=== PATIENT | female | born 1985 | race Caucasian/White ===

== ENCOUNTER 2016-11-22 05:48 | Inpatient (IN) | payer OTHER ==
[~2016-11-22] VITALS: Ht 160 cm; Wt 90.0 kg
[~2016-11-22 05:48] MED LIST: ALBU90AE INH
[2016-11-22] MEDS: D5%-LACTATED RINGERS 1,000 ML IV SCH ×3 (06:15→22:15)
[2016-11-22] MEDS ORDERED: OXYTOCIN 30U/ 0.9% NaCL 500ML 500 ML IV PRN (06:15)
[2016-11-22] MEDS ORDERED: OXYTOCIN 30U/ 0.9% NaCL 500ML 500 ML IV ONE (06:15)
[2016-11-22] MEDS ORDERED: ONDANSETRON 2MG/ML, 2ML IVPush PRN (06:30)
[2016-11-22] MEDS ORDERED: FENTANYL PF 100 MCG/2ML IV PRN (06:30)
[2016-11-22] MEDS ORDERED: FENTANYL PF 100 MCG/2ML IVPush PRN (06:30)
[2016-11-22] MEDS ORDERED: CALCIUM CARBONATE 500 MG TAB.CHEW PO PRN (06:30)
[2016-11-22] MEDS ORDERED: NEWBORN KIT ONE (06:49)
[2016-11-22 06:52] VITALS: BP 131/92
[2016-11-22 07:38] VITALS: BP 125/79
[2016-11-22] MEDS ORDERED: OXYTOCIN 30U/ 0.9% NaCL 500ML 500 ML ONE (08:40)
[2016-11-22] MEDS: LACTATED RINGERS 1,000 ML IV SCH ×4 (11:36→20:56)
[2016-11-22] MEDS ORDERED: FENTANYL/BUPIV./NS/PF 250 ML EPIDCONT ONE (12:07)
[2016-11-22] MEDS ORDERED: LIDOCAINE/PF 1.5%-EPI 1:200K, 30ML ONE (12:08)
[2016-11-22] MEDS ORDERED: CEFAZOLIN 1,000 MG IVPB SCH (16:00)
[2016-11-22] MEDS ORDERED: CEFAZOLIN 1,000 MG IM SCH (16:00)
[2016-11-22] MEDS: CEFAZOLIN 2,000 MG in SODIUM CHLORIDE 0.9% 50 ML IV SCH ×2 (16:19→22:36)
[2016-11-22] MEDS ORDERED: FENTANYL/BUPIV./NS/PF 250 ML EPIDCONT SCH (20:56)
[2016-11-22] MEDS ORDERED: EPHEDRINE 50 MG/ML, 1ML IVPush PRN (21:00)
[2016-11-22] MEDS ORDERED: NALOXONE 0.4 MG/ML, 1ML IVPush PRN (21:00)
[2016-11-22] MEDS ORDERED: LACTATED RINGERS 1,000 ML IVBOLUS PRN (21:00)
[2016-11-23] MEDS ORDERED: ACETAMINOPHEN 325 MG TABLET ONE (00:21)
[2016-11-23] MEDS: ACETAMINOPHEN 325 MG TABLET PO PRN ×2 (00:24→20:08)
[2016-11-23] MEDS: CEFAZOLIN 2,000 MG in SODIUM CHLORIDE 0.9% 50 ML IV SCH ×3 (04:31→16:00)
[2016-11-23] MEDS: LACTATED RINGERS 1,000 ML IV SCH ×8 (04:56→19:18)
[2016-11-23] MEDS: D5%-LACTATED RINGERS 1,000 ML IV SCH ×2 (06:15→14:15)
[2016-11-23] MEDS ORDERED: LIDOCAINE/MPF 2%-EPI 1:200K, 20 ML ONE ×2 (07:43→07:59)
[2016-11-23] MEDS ORDERED: AZITHROMYCIN 1,000 MG in SODIUM CHLORIDE 0.9% 250 ML IV STA (07:54)
[2016-11-23] MEDS ORDERED: CEFAZOLIN 1,000 MG ONE (07:59)
[2016-11-23] MEDS ORDERED: AZITHROMYCIN 1,000 MG in SODIUM CHLORIDE 0.9% 500 ML IV STA ×2 (08:14→08:18)
[2016-11-23] MEDS ORDERED: HYDROmorphone 2 MG/ML, 1ML ONE (08:27)
[2016-11-23] MEDS: OXYTOCIN 30U/ 0.9% NaCL 500ML 500 ML IV SCH ×2 (09:18→19:18)
[2016-11-23] MEDS: PRENATAL VIT/IRON/FA 1 EACH TABLET PO SCH (09:30)
[2016-11-23] MEDS ORDERED: SIMETHICONE 80 MG CHEW TAB PO PRN (09:30)
[2016-11-23] MEDS ORDERED: ONDANSETRON 2MG/ML, 2ML IV PRN (09:30)
[2016-11-23] MEDS ORDERED: OXYcodone/APAP 5/325MG TABLET PO PRN (09:30)
[2016-11-23] MEDS ORDERED: MEPERIDINE/PF 50 MG/ML IVPush PRN (09:30)
[2016-11-23] MEDS ORDERED: MISOPROSTOL 200 MCG TABLET PR PRN (09:30)
[2016-11-23] MEDS ORDERED: morphine SULFATE 10 MG/ML, 1ML IVPush PRN ×2 (09:30)
[2016-11-23] MEDS: KETOROLAC 30 MG/1 ML IV SCH ×3 (09:54→22:27)
[2016-11-23] MEDS ORDERED: OXYcodone 5 MG/5 ML ORAL.SOL UDC ONE (10:38)
[2016-11-23] MEDS ORDERED: OXYcodone 5 MG/5 ML ORAL.SOL UDC PO PRN (11:00)
[2016-11-23 11:30] VITALS: BP 129/75
[2016-11-23 12:30] VITALS: BP 131/75
[2016-11-23] MEDS ORDERED: morphine SULFATE 10 MG/ML, 1ML ONE (12:46)
[2016-11-23] MEDS ORDERED: OXYcodone/APAP 5/325MG TABLET ONE (16:06)
[2016-11-23] MEDS: OXYcodone IR 5MG TABLET PO PRN ×2 (16:24→20:08)
[2016-11-23 18:55] VITALS: BP 117/79
[2016-11-23 21:45] VITALS: BP 121/81
[2016-11-23] MEDS ORDERED: CEFTRIAXONE PMX 1GM/50ML 50 ML IV SCH (22:30)
[2016-11-23] MEDS ORDERED: CEFTRIAXONE 1,000 MG IV SCH (22:30)
[2016-11-24 00:50] VITALS: BP 116/74
[2016-11-24] MEDS: LACTATED RINGERS 1,000 ML IV SCH ×5 (01:18→17:18)
[2016-11-24] MEDS: OXYcodone IR 5MG TABLET PO PRN ×3 (02:14→18:38)
[2016-11-24 04:25] VITALS: BP 113/77
[2016-11-24] MEDS: KETOROLAC 30 MG/1 ML IV SCH ×3 (04:29→17:30)
[2016-11-24] MEDS: OXYTOCIN 30U/ 0.9% NaCL 500ML 500 ML IV SCH ×2 (05:18→15:18)
[2016-11-24] MEDS: PRENATAL VIT/IRON/FA 1 EACH TABLET PO SCH (08:36)
[2016-11-24] MEDS: DOCUSATE 100 MG CAPSULE PO PRN ×2 (08:36→21:05)
[2016-11-24 08:40] VITALS: BP 116/74
[2016-11-24 19:50] VITALS: BP 133/77
[2016-11-24] MEDS: AMOXICILLIN/CLAV 875-125MG TABLET PO SCH (21:05)
[2016-11-24] MEDS: IBUPROFEN 600 MG TABLET PO PRN (21:05)
[2016-11-25 00:30] VITALS: BP 136/81
[2016-11-25] MEDS: OXYTOCIN 30U/ 0.9% NaCL 500ML 500 ML IV SCH (01:18)
[2016-11-25] MEDS: LACTATED RINGERS 1,000 ML IV SCH ×3 (01:18→09:18)
[2016-11-25 04:40] VITALS: BP 137/82
[2016-11-25] MEDS: IBUPROFEN 600 MG TABLET PO PRN ×2 (05:26→12:44)
[2016-11-25 08:15] VITALS: BP 129/79
[2016-11-25] MEDS: DOCUSATE 100 MG CAPSULE PO PRN ×2 (08:50→22:21)
[2016-11-25] MEDS: PRENATAL VIT/IRON/FA 1 EACH TABLET PO SCH (08:50)
[2016-11-25] MEDS: AMOXICILLIN/CLAV 875-125MG TABLET PO SCH ×2 (08:51→22:21)
[2016-11-25] MEDS ORDERED: IBUPROFEN 600 MG TABLET PO PRN (10:00)
[2016-11-25 12:10] VITALS: BP 124/78
[2016-11-25 21:00] VITALS: BP 125/78
[2016-11-26] MEDS: IBUPROFEN 600 MG TABLET PO PRN ×2 (07:25→13:21)
[2016-11-26] MEDS: PRENATAL VIT/IRON/FA 1 EACH TABLET PO SCH (07:25)
[2016-11-26] MEDS: DOCUSATE 100 MG CAPSULE PO PRN (07:25)
[2016-11-26 07:30] VITALS: BP 126/84
[2016-11-26] MEDS ORDERED: IBUP-1222 PO (09:32)
[2016-11-26] MEDS ORDERED: OXYC-302 PO (09:34)
[2016-11-26] MEDS: AMOXICILLIN/CLAV 875-125MG TABLET PO SCH (13:00)
== END 2016-11-26 15:10 | disposition home or self-care (01) | DRG 766 ==
LOC: LDOP 05:48 → LDIP 06:13 → 2NW 11-23 11:56 → 2NE 11-23 12:08 → 2NW 11-23 18:07
PROVIDERS: ADMIT Obstetrics & Gynecology Gynecology; ATTEND Obstetrics & Gynecology Gynecology
PROC: 10D00Z1 Extraction of Products of Conception, Low, Open Approach (ICD-10-PCS; principal; 2016-11-23)
DX: O62.0 Primary inadequate contractions (principal); O42.92 Full-term premature rupture of membranes, unspecified as to length of time between rupture and onset of labor; Z37.0 Single live birth; O77.0 Labor and delivery complicated by meconium in amniotic fluid; O76 Abnormality in fetal heart rate and rhythm complicating labor and delivery; Z3A.40 40 weeks gestation of pregnancy
CPT/HCPCS: 36415; 82803; 85025; 86850; 86900; J0456; J0690; J0696; J1170; J1885; J3490; J2270; J2590; J3010; J7040; J7120

== ENCOUNTER 2019-07-20 17:32 | Outpatient (CLI) | payer OTHER ==
[~2019-07-20] VITALS: Ht 160 cm; Wt 83.6 kg
[~2019-07-20 17:32] MED LIST changes: +IBUP-1222 PO; +OXYC-302 PO
[2019-07-20 18:19] LABS: BASOPHILS # (AUTO) 0.01 x10^3/uL (0-0.1); BASOPHILS % (AUTO) 0 % (0-1); EOSINOPHILS # (AUTO) 0.06 x10^3/uL (0-0.4); EOSINOPHILS % (AUTO) 1 % (1-7); LYMPHOCYTES # (AUTO) 2.08 x10^3/uL (1-3.4); LYMPHOCYTES % (AUTO) 21 % (22-44); MD NO; MEAN CORPUSCULAR HEMOGLOBIN 31.9 pg (27.0-34.8); MEAN CORPUSCULAR HGB CONC 33.6 g/dL (32.4-35.8); MEAN CORPUSCULAR VOLUME 94.8 fL (80-100); MEAN PLATELET VOLUME 8.4 fL (7.4-10.4); MONOCYTES # (AUTO) 0.72 x10^3/uL (0.2-0.8); MONOCYTES % (AUTO) 7 % (2-9); NEUTROPHILS # (AUTO) 7.26 x10^3/uL (1.8-6.8); NEUTROPHILS % (AUTO) 72 % (42-75); PLATELET COUNT 217 x10^3/uL (130-400); RED BLOOD COUNT 3.96 x10^6/uL (3.82-5.3); RED CELL DISTRIBUTION WIDTH 13.7 % (9.6-15.2)
[2019-07-20 18:32] LABS: ALANINE AMINOTRANSFERASE 16 U/L (12-78); ALBUMIN 2.6 g/dL (3.4-5.0); ANION GAP 7 mmol/L (5-15); CALCIUM 9.2 mg/dL (8.5-10.1); CHLORIDE 107 mmol/L (98-107); CREATININE 0.62 mg/dL (0.55-1.02)
[2019-07-20 18:34] LABS: CREATININE,URINE RANDOM 27.5 mg/dL
[2019-07-20 18:34] LABS: ALKALINE PHOSPHATASE 86 U/L (45-117); BILIRUBIN,TOTAL 0.2 mg/dL (0.2-1.0); TOTAL PROTEIN 6.8 g/dL (6.4-8.2)
[2019-07-20 19:15] LABS: MICROSCOPIC INDICATED
== END 2019-07-20 20:25 | disposition home or self-care (01) ==
LOC: LDOP 17:32
PROVIDERS: ATTEND Obstetrics & Gynecology
DX: O13.3 Gestational [pregnancy-induced] hypertension without significant proteinuria, third trimester (principal); Z3A.35 35 weeks gestation of pregnancy
CPT/HCPCS: 36415; 59025; 80053; 81001; 82570; 84156; 84550; 85025; 87081; 99211; G0463

== ENCOUNTER 2019-07-25 08:34 | Outpatient (CLI) | payer OTHER ==
[2019-07-25 08:57] VITALS: BP 128/81
== END 2019-07-25 10:57 | disposition home or self-care (01) ==
LOC: LDOP 08:34
PROVIDERS: ATTEND Obstetrics & Gynecology
DX: O32.1XX0 Maternal care for breech presentation, not applicable or unspecified (principal); O36.8130 Decreased fetal movements, third trimester, not applicable or unspecified; Z3A.33 33 weeks gestation of pregnancy
CPT/HCPCS: 59025; 76819; 99211; G0463

== ENCOUNTER 2019-08-09 16:57 | Outpatient (CLI) | payer OTHER ==
[~2019-08-09] VITALS: Ht 160 cm; Wt 86.8 kg
[2019-08-09 17:23] VITALS: BP 122/66
[2019-08-09 17:47] LABS: MICROSCOPIC AUTO
[2019-08-09 17:54] LABS: CREATININE,URINE RANDOM 27.7 mg/dL
[2019-08-09 18:27] LABS: ALANINE AMINOTRANSFERASE 18 U/L (12-78); ALBUMIN 2.6 g/dL (3.4-5.0); ANION GAP 8 mmol/L (5-15); CALCIUM 8.9 mg/dL (8.5-10.1); CHLORIDE 109 mmol/L (98-107); CREATININE 0.73 mg/dL (0.55-1.02)
[2019-08-09 18:29] LABS: ALKALINE PHOSPHATASE 112 U/L (45-117); BASOPHILS # (AUTO) 0.02 x10^3/uL (0-0.1); BASOPHILS % (AUTO) 0 % (0-1); BILIRUBIN,TOTAL 0.2 mg/dL (0.2-1.0); EOSINOPHILS # (AUTO) 0.11 x10^3/uL (0-0.4); EOSINOPHILS % (AUTO) 1 % (1-7); LYMPHOCYTES % (AUTO) 20 % (22-44); MD NO; MEAN CORPUSCULAR HGB CONC 33.9 g/dL (32.4-35.8); MEAN CORPUSCULAR VOLUME 94.3 fL (80-100); MEAN PLATELET VOLUME 9.3 fL (7.4-10.4); MONOCYTES # (AUTO) 0.67 x10^3/uL (0.2-0.8); MONOCYTES % (AUTO) 8 % (2-9); NEUTROPHILS # (AUTO) 5.84 x10^3/uL (1.8-6.8); NEUTROPHILS % (AUTO) 70 % (42-75); PLATELET COUNT 201 x10^3/uL (130-400); RED BLOOD COUNT 3.92 x10^6/uL (3.82-5.3); RED CELL DISTRIBUTION WIDTH 14.3 % (9.6-15.2); TOTAL PROTEIN 6.8 g/dL (6.4-8.2)
[2019-08-09 18:30] LABS: BILIRUBIN, DIRECT < 0.1 mg/dL (0.1-0.2)
== END 2019-08-09 19:12 | disposition home or self-care (01) ==
LOC: LDOP 16:57
PROVIDERS: ATTEND Obstetrics & Gynecology
DX: O13.3 Gestational [pregnancy-induced] hypertension without significant proteinuria, third trimester (principal); Z3A.38 38 weeks gestation of pregnancy; Z91.010 Allergy to peanuts
CPT/HCPCS: 36415; 59025; 80053; 81001; 82248; 82570; 84156; 84550; 85025; 99211; G0463

== ENCOUNTER 2019-08-11 05:35 | Inpatient (IN) | payer OTHER ==
[~2019-08-11] VITALS: Ht 160 cm; Wt 86.3 kg
[2019-08-11] MEDS ORDERED: LACTATED RINGERS 1,000 ML IV SCH (05:38)
[2019-08-11 05:49] VITALS: BP 119/78
[2019-08-11] MEDS ORDERED: PREN-3 PO (05:55)
[2019-08-11] MEDS ORDERED: ALBU0.63 NEB (05:57)
[2019-08-11] MEDS ORDERED: METOCLOPRAMIDE 5 MG/ML, 2ML IV ONE (06:00)
[2019-08-11] MEDS ORDERED: LACTATED RINGERS 1,000 ML IVBOLUS ONE (06:00)
[2019-08-11] MEDS ORDERED: SODIUM CITRATE/CITRIC ACID 30 ML UDC PO ONE (06:00)
[2019-08-11] MEDS ORDERED: SODIUM CITRATE/CITRIC ACID 30 ML UDC ONE (06:18)
[2019-08-11] MEDS ORDERED: NEWBORN KIT ONE (06:18)
[2019-08-11] MEDS ORDERED: OXYTOCIN 30U/ 0.9% NaCL 500ML 500 ML ONE (06:18)
[2019-08-11] MEDS ORDERED: METOCLOPRAMIDE 5 MG/ML, 2ML ONE (06:18)
[2019-08-11 06:48] LABS: BASOPHILS # (AUTO) 0.02 x10^3/uL (0-0.1); BASOPHILS % (AUTO) 0 % (0-1); EOSINOPHILS # (AUTO) 0.07 x10^3/uL (0-0.4); EOSINOPHILS % (AUTO) 1 % (1-7); LYMPHOCYTES # (AUTO) 1.55 x10^3/uL (1-3.4); LYMPHOCYTES % (AUTO) 20 % (22-44); MD NO; MEAN CORPUSCULAR HEMOGLOBIN 32.1 pg (27.0-34.8); MEAN CORPUSCULAR HGB CONC 33.5 g/dL (32.4-35.8); MEAN CORPUSCULAR VOLUME 95.8 fL (80-100); MEAN PLATELET VOLUME 9.2 fL (7.4-10.4); MONOCYTES # (AUTO) 0.59 x10^3/uL (0.2-0.8); MONOCYTES % (AUTO) 8 % (2-9); NEUTROPHILS # (AUTO) 5.37 x10^3/uL (1.8-6.8); NEUTROPHILS % (AUTO) 71 % (42-75); PLATELET COUNT 188 x10^3/uL (130-400); RED BLOOD COUNT 3.85 x10^6/uL (3.82-5.3); RED CELL DISTRIBUTION WIDTH 14.3 % (9.6-15.2)
[2019-08-11] MEDS ORDERED: FENTANYL PF 100 MCG/2ML ONE (07:16)
[2019-08-11] MEDS ORDERED: OXYTOCIN 10 UNITS/ML, 1ML ONE (07:23)
[2019-08-11] MEDS ORDERED: CEFAZOLIN 1,000 MG ONE (07:23)
[2019-08-11] MEDS ORDERED: KETOROLAC 30 MG/1 ML ONE (07:23)
[2019-08-11 08:33] LABS: CREATININE,URINE RANDOM 52.3 mg/dL
[2019-08-11] MEDS: KETOROLAC 30 MG/1 ML IV SCH ×3 (09:00→21:56)
[2019-08-11] MEDS ORDERED: ONDANSETRON 2MG/ML, 2ML ONE (09:04)
[2019-08-11] MEDS: LACTATED RINGERS 1,000 ML IV SCH ×4 (09:06→19:06)
[2019-08-11] MEDS: OXYTOCIN 30U/ 0.9% NaCL 500ML 500 ML IV SCH ×2 (09:16→19:06)
[2019-08-11] MEDS ORDERED: MORPHINE SULFATE 4 MG/ML, 1ML IVPush PRN (09:30)
[2019-08-11] MEDS ORDERED: morphine SULFATE 10 MG/ML, 1ML IVPush PRN ×2 (09:30)
[2019-08-11] MEDS ORDERED: ONDANSETRON 2MG/ML, 2ML IVPush PRN (09:30)
[2019-08-11] MEDS ORDERED: EPHEDRINE 50 MG/ML, 1ML IVPush PRN (09:30)
[2019-08-11] MEDS ORDERED: PROMETHAZINE 25 MG/ML, 1ML IV PRN (09:30)
[2019-08-11] MEDS ORDERED: ALBUTEROL/IPRATROPIUM 2.5MG/0.5MG, 3 ML NPPB PRN (09:30)
[2019-08-11] MEDS ORDERED: GLYCERIN ADULT SUPP PR PRN (09:30)
[2019-08-11] MEDS ORDERED: ONDANSETRON 2MG/ML, 2ML IV PRN ×2 (09:30)
[2019-08-11] MEDS ORDERED: FENTANYL PF 100 MCG/2ML IV PRN (09:30)
[2019-08-11] MEDS ORDERED: SIMETHICONE 80 MG CHEW TAB PO PRN (09:30)
[2019-08-11] MEDS ORDERED: DIPHENHYDRAMINE 50 MG/ML, 1ML IVPush PRN (09:30)
[2019-08-11] MEDS ORDERED: OXYcodone 5 MG/5 ML ORAL.SOL UDC PO PRN (09:30)
[2019-08-11] MEDS ORDERED: MISOPROSTOL 200 MCG TABLET PR PRN (09:30)
[2019-08-11] MEDS ORDERED: LABETALOL 5MG/ML, 20ML IV PRN (09:30)
[2019-08-11] MEDS ORDERED: DEXAMETHASONE 4 MG/ML, 1ML IV PRN (09:30)
[2019-08-11] MEDS ORDERED: OXYcodone IR 5MG TABLET PO PRN (09:30)
[2019-08-11] MEDS ORDERED: MEPERIDINE/PF 25MG/ML,1ML IVPush PRN (09:30)
[2019-08-11 11:10] VITALS: BP 117/58
[2019-08-11] MEDS: OXYcodone/APAP 5/325MG TABLET PO PRN ×3 (13:01→21:57)
[2019-08-11 16:00] VITALS: BP 130/85
[2019-08-11 16:32] LABS: BASOPHILS # (AUTO) 0.05 x10^3/uL (0-0.1); BASOPHILS % (AUTO) 0 % (0-1); EOSINOPHILS # (AUTO) 0.04 x10^3/uL (0-0.4); EOSINOPHILS % (AUTO) 0 % (1-7); LYMPHOCYTES # (AUTO) 1.62 x10^3/uL (1-3.4); LYMPHOCYTES % (AUTO) 15 % (22-44); MD NO; MEAN CORPUSCULAR HEMOGLOBIN 32.3 pg (27.0-34.8); MEAN CORPUSCULAR HGB CONC 33.8 g/dL (32.4-35.8); MEAN CORPUSCULAR VOLUME 95.5 fL (80-100); MEAN PLATELET VOLUME 8.3 fL (7.4-10.4); MONOCYTES # (AUTO) 0.66 x10^3/uL (0.2-0.8); MONOCYTES % (AUTO) 6 % (2-9); NEUTROPHILS % (AUTO) 79 % (42-75); PLATELET COUNT 165 x10^3/uL (130-400); RED BLOOD COUNT 3.38 x10^6/uL (3.82-5.3); RED CELL DISTRIBUTION WIDTH 14.3 % (9.6-15.2)
[2019-08-11 19:23] VITALS: BP 117/79
[2019-08-11] MEDS ORDERED: MEASLES,MUMPS&RUBELLA VACC/PF 0.5 ML SQ-VACC ONE ×2 (20:03→20:30)
[2019-08-11] MEDS: DOCUSATE 100 MG CAPSULE PO PRN (21:57)
[2019-08-12] MEDS: LACTATED RINGERS 1,000 ML IV SCH ×2 (01:06→05:06)
[2019-08-12 01:25] VITALS: BP 132/89
[2019-08-12 04:15] VITALS: BP 116/72
[2019-08-12] MEDS: KETOROLAC 30 MG/1 ML IV SCH (04:18)
[2019-08-12] MEDS: OXYTOCIN 30U/ 0.9% NaCL 500ML 500 ML IV SCH (05:06)
[2019-08-12 08:15] VITALS: BP 124/79
[2019-08-12] MEDS: DOCUSATE 100 MG CAPSULE PO PRN (08:25)
[2019-08-12] MEDS: OXYcodone/APAP 5/325MG TABLET PO PRN ×3 (08:26→17:54)
[2019-08-12] MEDS: PRENATAL VIT/IRON/FA 1 EACH TABLET PO SCH (09:00)
[2019-08-12] MEDS: IBUPROFEN 600 MG TABLET PO PRN ×2 (11:25→17:54)
[2019-08-12 19:00] VITALS: BP 122/76
[2019-08-13] MEDS: IBUPROFEN 600 MG TABLET PO PRN ×2 (00:07→06:49)
[2019-08-13] MEDS: OXYcodone/APAP 5/325MG TABLET PO PRN ×2 (00:07→10:17)
[2019-08-13 07:10] VITALS: BP 126/86
[2019-08-13 07:13] LABS: BASOPHILS # (AUTO) 0.03 x10^3/uL (0-0.1); BASOPHILS % (AUTO) 0 % (0-1); EOSINOPHILS % (AUTO) 1 % (1-7); LYMPHOCYTES # (AUTO) 1.55 x10^3/uL (1-3.4); LYMPHOCYTES % (AUTO) 19 % (22-44); MD NO; MEAN CORPUSCULAR HEMOGLOBIN 31.7 pg (27.0-34.8); MEAN CORPUSCULAR HGB CONC 32.8 g/dL (32.4-35.8); MEAN CORPUSCULAR VOLUME 96.8 fL (80-100); MEAN PLATELET VOLUME 7.3 fL (7.4-10.4); MONOCYTES # (AUTO) 0.53 x10^3/uL (0.2-0.8); MONOCYTES % (AUTO) 6 % (2-9); NEUTROPHILS # (AUTO) 6.05 x10^3/uL (1.8-6.8); NEUTROPHILS % (AUTO) 73 % (42-75); PLATELET COUNT 189 x10^3/uL (130-400); RED BLOOD COUNT 3.45 x10^6/uL (3.82-5.3); RED CELL DISTRIBUTION WIDTH 14.6 % (9.6-15.2)
[2019-08-13 07:24] LABS: ALANINE AMINOTRANSFERASE 13 U/L (12-78); ALBUMIN 2.1 g/dL (3.4-5.0); ANION GAP 6 mmol/L (5-15); CALCIUM 8.4 mg/dL (8.5-10.1); CHLORIDE 107 mmol/L (98-107)
[2019-08-13 07:27] LABS: ALKALINE PHOSPHATASE 88 U/L (45-117); BILIRUBIN,TOTAL 0.2 mg/dL (0.2-1.0); CREATININE 0.72 mg/dL (0.55-1.02); TOTAL PROTEIN 6.2 g/dL (6.4-8.2)
[2019-08-13] MEDS: PRENATAL VIT/IRON/FA 1 EACH TABLET PO SCH (07:50)
[2019-08-13] MEDS: DOCUSATE 100 MG CAPSULE PO PRN (07:50)
[2019-08-13] MEDS ORDERED: DOCU-131 PO (10:06)
[2019-08-13] MEDS ORDERED: OXYC-302 PO (10:06)
[2019-08-13] MEDS ORDERED: IBUP-1222 PO (10:06)
== END 2019-08-13 10:30 | disposition home or self-care (01) | DRG 788 ==
LOC: LDIP 05:35 → 2NW 11:00
PROVIDERS: ADMIT Obstetrics & Gynecology; ATTEND Obstetrics & Gynecology
PROC: 10D00Z1 Extraction of Products of Conception, Low, Open Approach (ICD-10-PCS; principal; 2019-08-11)
PROC: 3E0234Z Introduction of Serum, Toxoid and Vaccine into Muscle, Percutaneous Approach (ICD-10-PCS; 2019-08-11)
DX: O34.211 Maternal care for low transverse scar from previous cesarean delivery (principal); J45.909 Unspecified asthma, uncomplicated; O12.14 Gestational proteinuria, complicating childbirth; O99.52 Diseases of the respiratory system complicating childbirth; Z37.0 Single live birth; Z3A.39 39 weeks gestation of pregnancy; Z82.3 Family history of stroke; Z82.49 Family history of ischemic heart disease and other diseases of the circulatory system; Z83.3 Family history of diabetes mellitus; Z23 Encounter for immunization
CPT/HCPCS: 36415; 80053; 82570; 84156; 85025; 86592; 86850; 86900; G0378; J0690; J1885; J2405; J3010; J2590; J2765; J7120